=== PATIENT | male | born 1985 | race Caucasian/White ===

== ENCOUNTER 2024-10-10 12:00 | Emergency (ER) | payer OTHER, SELFPAY ==
[2024-10-10] VITALS (10 sets, daily range): BP systolic 113–134; BP diastolic 71–88; PULSE 82–125; RESP 12–23; TEMP 36.3–36.4; O2SAT 97–100
--- NOTE | ~2024-10-10 | XR_ITS ---
EXAMINATION: XR chest 2V 10/10/2024 12:35 INDICATION: Chest pain and shortness of breath PROCEDURE: 2 view chest COMPARISON: 09/19/2016 FINDINGS: The lungs are clear. The cardiomediastinal silhouette is within normal limits. There are no pleural effusions. There is no pneumothorax suspected. IMPRESSION: 1: NO ACUTE CARDIOPULMONARY DISEASE. Reviewed, dictated and finalized at location A.
--- NOTE | ~2024-10-10 | CT_ITS ---
EXAMINATION: CTA chest PE protocol DATE: 10/10/2024 14:40 INDICATION: Chest pain. Shortness of breath. TECHNIQUE: Computed tomography (CT) pulmonary angiogram of the chest was performed with 100 mL Omnipa que-350 intravenous contrast. Additional 3D reconstructions utilizing coronal maximum intensity proje ction (MIP) were performed. Automated exposure control and iterative reconstruction technique were em ployed. The dose-length product was 298.53 mGy-cm. COMPARISON: None FINDINGS: No pulmonary embolism. No pneumonia, pulmonary edema, pleural effusion or pneumothorax. Calcified nod ule at the basilar left lower lobe and calcified subcarinal lymph nodes consistent with old granuloma tous disease. Heart size is normal. No pericardial effusion. Thoracic aorta is normal in caliber with no dissection. No pathologically enlarged thoracic lymphadenopathy. Diffuse hepatic steatosis with f ocal sparing along the gallbladder fossa.. Bones are unremarkable. IMPRESSION: 1. No pulmonary embolism or other acute cardiopulmonary disease. 2. Diffuse hepatic steatosis. Reviewed, dictated and finalized at location A.
--- OUTSIDE RECORDS SUMMARY | 2024-10-10 12:03 | XMS_ITS | Referral Summary ---
Author Organization [facility] Address [address] [place] [id number] Care Team Providers Care Display Trimmer Name Role Phone No, Physician Primary Care Provider [phone] Allergies No known active allergies Medications No known medications Active Problems Problem Noted Date Diagnosed Date Precordial pain 10/22/2016 Social History Tobacco Use Types Packs/Day Years Used Date Smoking Tobacco: Every Day Cigarettes Smokeless Tobacco: Never Alcohol Use Standard Drinks/Week Comments Yes 10 (1 standard drink = 0.6 oz pu re alcohol) Personal Safety Answer Date Recorded Getting School Help Needed Not on file 10/07 Sex and Gender Information Value Date Recorded Sex Assigned at Not on file Legal Sex Male 4:20 PM CDT Gender Identity Not on file Sexual Orientation Not on file Last Filed Vital Signs Vital Sign Reading Time Taken Comments Blood Pressure 163/98 10/05/2022 9:15 PM CDT Pulse 76 10/05/2022 9:15 PM CDT Temperature 36.8 C (98.2 F) 10/05/2022 4:56 PM CDT Respiratory Rate 22 10/05/2022 9:15 PM CDT Oxygen Saturation 95% 10/05/2022 9:15 PM CDT Inhaled Oxygen Concentration - - Weight 87.5 kg (193 lb) 10/05/2022 4:56 PM CDT Height 172.7 cm (5' 8) 10/05/2022 4:56 PM CDT Body Mass Index 29.35 10/05/2022 4:56 PM CDT Plan of Treatment Not on file Insurance [facility] CHOICE PLUS [facility] CHOICE PLUS Care Teams Display Trimmer Relationship Specialty Start Date End Date No, Physician PCP - General 10/05/22
--- OUTSIDE RECORDS SUMMARY | 2024-10-10 12:03 | XMS_ITS | Clinical Summary ---
Author Organization [facility] Address [address] [place] [id number] Care Team Providers Care Lining Machine Operator Name Role Phone No, Physician Primary Care Provider [phone] Allergies No known active allergies Medications No known medications Active Problems Problem Noted Date Diagnosed Date Precordial pain 10/22/2016 Family History Medical History Relation Name Comments No Known Problems Father No Known Problems Mother No Known Problems Sister Relation Name Status Comments Father Alive Mother Alive Sister Alive Social History Tobacco Use Types Packs/Day Years [...] on file Sexual Orientation Not on file Obstetrics History Last Filed Vital Signs Vital Sign Reading [...] 10/05/2022 4:56 PM CDT Plan of Treatment Health Maintenance Due Date Last Done Comments Depression Screening 1985 Hepatitis C Screening 1985 DTaP/Tdap/Td Vaccine (1 - Tdap) 1996 Varicella Vaccines (1 of 2 - 13+ 2-dose series) 1998 Hepatitis B Screening 2003 Regular Well Visit/Exam 18-64 2003 Pneumococcal vaccine <65 (1 of 2 - PCV) 2004 HPV Vaccines (1 - 3-dose SCDM series) 2012 Influenza Vaccine (#1) 2024 Insurance UHC CHOICE PLUS [facility] CHOICE PLUS Care Teams Lining Machine Operator Relationship Specialty Start Date End Date No, Physician PCP - General 10/05/22
--- NOTE | 2024-10-10 12:06 | ECG_ITS ---
Test Date: 2024-10-10 12:12:10 Measurements Intervals [place] Rate: 119 P: 62 NE: 138 QRS: 55 QRSD: 81 T: 62 QT: 292 QTc: 412 Interpretive Statements SINUS TACHYCARDIA ABNORMAL ECG No previous ECG available for comparison Electronically Signed On 10-10-2024 12:51:48 CDT by Denis Chan D.O.
[2024-10-10] MEDS: ASPIRIN 81 MG CHEWABLE TABLET 324 MG PO (12:13)
--- NOTE | 2024-10-10 12:13 | ED.SOB ---
HPI - SOB/Dyspnea General Chief Complaint: Shortness of Breath/Dyspnea <Julio Medellin APRN - Last Filed: 10/10/24 13:57> Stated Complaint: SOB, dizzy, ears popping in and out <Julio Medellin APRN - Last Filed: 10/10/24 13:57> Time Seen by Provider: 10/10/24 12:13 <Julio Medellin APRN - Last Filed: 10/10/24 13:57> Presents to the ER complaining of dizziness, shortness of breath, palpitations, lightheadedness the last 5 days. Patient says symptoms come and go. Patient says symptoms now lot worse today after he was fishing he became very dizzy especially with position changes and reporting shortness of breath. Patient denies any chest pain, loss of consciousness, vision changes, headaches, abdominal pain, nausea, vomiting, diarrhea, or any other symptoms. Patient has a history of hypertension and is a smoker. Patient denies any other significant past medical history. Focused HPI: GENERAL: Well-appearing, well-nourished, and in no acute distress. HEAD: Normocephalic, atraumatic. CHEST: Clear to auscultation. ?No respiratory distress. Patient Tachypneic. HEART: Tachycardic rate and rhythm.? NEURO: ?Alert and oriented x3. Patient screened in triage and initial orders placed.? ?Additional care and disposition to be based upon?diagnostic testing and treatment. <Julio Medellin APRN - Last Filed: 10/10/24 13:57> History of Present Illness HPI Narrative: Agree with HPI <Kendall Gomez MD - Last Filed: 10/10/24 16:01> Related Data Allergies/Adverse Reactions: Allergies Allergy/AdvReac Type Severity Reaction Status Date / Time No Known Allergies Allergy Unverified 10/10/24 12:44 <Julio Medellin APRN - Last Filed: 10/10/24 13:57> Review of Systems Review of Systems: All systems reviewed & are unremarkable except as noted in HPI and below <Kendall Gomez MD - Last Filed: 10/10/24 16:01> Constitutional: Constitutional: Reports no additional constitutional complaints <Kendall Gomez MD - Last Filed: 10/10/24 16:01> ENT: Reports system reviewed and no additional complaints, except as documented <Kendall Gomez MD - Last Filed: 10/10/24 16:01> Cardiovascular: Cardiovascular: Reports no additional cardiovascular complaints <Kendall Gomez MD - Last Filed: 10/10/24 16:01> Respiratory: Respiratory: Reports no additional respiratory complaints <Kendall Gomez MD - Last Filed: 10/10/24 16:01> Gastrointestinal: Gastrointestinal: Reports no additional gastrointestinal complaints <Kendall Gomez MD - Last Filed: 10/10/24 16:01> Musculoskeletal: Musculoskeletal: Reports no additional musculoskeletal complaints <Kendall Gomez MD - Last Filed: 10/10/24 16:01> [facility] Past Medical History Medical History: Medical History (Updated 10/10/24 @ 15:59 by Kendall Gomez MD) Healthy adult male <Julio Medellin APRN - Last Filed: 10/10/24 13:57> Surgical History Surgical History: Surgical History (Updated 10/10/24 @ 15:57 by Kendall Gomez MD) No pertinent past surgical history <Julio Medellin APRN - Last Filed: 10/10/24 13:57> Exam Narrative: GENERAL: Well-appearing, well-nourished, and in no acute distress. HEAD: Normocephalic, atraumatic. EYES: Right gaze nystagmus. ENT: Mucous membranes moist. TMs normal bilaterally. CHEST: Clear to auscultation. No respiratory distress. HEART: Regular rate and rhythm. Normal peripheral pulses. ABDOMEN: Soft, nontender, nondistended. EXTREMITIES: Normal range of motion. No edema. SKIN: Warm, dry, no rash. NEURO: Alert and oriented x3. PSYCH: Normal mood and affect. <Kendall Gomez MD - Last Filed: 10/10/24 16:01> Course Vital Signs Vital signs: Vital Signs Temperature 97.5 F L 10/10/24 12:03 Pulse Rate 125 H 10/10/24 12:03 Respiratory Rate 23 H 10/10/24 12:03 Blood Pressure 116/88 10/10/24 12:03 Pulse Oximetry 100 10/10/24 12:03 Oxygen Delivery Room Air 10/10/24 12:03 Temperature 97.5 F L 10/10/24 12:03 Pulse Rate 93 10/10/24 15:28 Respiratory Rate 18 10/10/24 15:28 Blood Pressure 125/85 10/10/24 15:28 Pulse Oximetry 99 10/10/24 15:28 Oxygen Delivery Room Air 10/10/24 12:51 <Julio Medellin APRN - Last Filed: 10/10/24 13:57> Vital Signs Temperature 97.5 F L 10/10/24 12:03 Pulse Rate 125 H 10/10/24 12:03 Respiratory Rate 23 H 10/10/24 12:03 Blood Pressure 116/88 10/10/24 12:03 Pulse Oximetry 100 10/10/24 12:03 Oxygen Delivery Room Air 10/10/24 12:03 Temperature 97.5 F L 10/10/24 12:03 Pulse Rate 93 10/10/24 15:28 Respiratory Rate 18 10/10/24 15:28 Blood Pressure 125/85 10/10/24 15:28 Pulse Oximetry 99 10/10/24 15:28 Oxygen Delivery Room Air 10/10/24 12:51 <Kendall Gomez MD - Last Filed: 10/10/24 16:01> MDM - SOB/Dyspnea Lab Data Result diagrams: 10/10/24 12:22 10/10/24 12:22 <Julio Medellin APRN - Last Filed: 10/10/24 13:57> Labs: Lab Results 10/10/24 10/10/24 10/10/24 Range/Units 12:22 12:22 15:18 WBC 10.1 H (4.5-10.0) K/mm3 RBC 5.05 (4.6-6.20) M/mm3 Hgb 16.2 (14.0-18.0) g/dL Hct 46.1 (42.0-52.0) % MCV 91.3 (80-100) fl MCH 32.1 (26-34) pg MCHC 35.1 (32-36) g/dl RDW 11.9 (11.5-14.5) % Plt Count 201 (150-375) k/mm3 MPV 10.8 H (7.4-10.4) fl Immature Gran % (Auto) 0.2 (0-0.5) % Neut % (Auto) 68.9 (45.5-73.1) % Lymph % (Auto) 25.2 (18.3-44.2) % [place] % (Auto) 5.2 (2.6-8.5) % Eos % (Auto) 0.1 (0-4.4) % Baso % (Auto) 0.4 (0.2-1.2) % Lymph # (Auto) 2.54 (0.9-3.2) K/mm3 [place] # (Auto) 0.5 (0.1-0.6) K/mm3 Eos # (Auto) 0.0 (0-0.3) K/mm3 Baso # (Auto) 0.0 (0.0-0.1) K/mm3 Abs Immat Gran (auto) 0.02 (0.00-0.031) K/mm3 Absolute Neuts (auto) 6.9 H (1.3-6.7) K/mm3 Absolute Nucleated RBC 0.000 (0.0-0.012) K/mm3 Nucleated RBC % 0.0 (0.0-0.2) % PT 12.7 (11.1-14.7) Seconds INR 1.0 APTT 22.2 L (22.3-36.8) Seconds D-Dimer 1.88 H Cancelled (<0.48) ug/mL Sodium 130 L (137-145) mmol/L Potassium 4.0 (3.4-5.0) mmol/L Chloride 104 (98-107) mmol/L Carbon Dioxide 15 L (22-30) mmol/L Anion Gap 11 (4-12) mmol/L BUN 27 H (9-20) mg/dL Creatinine 1.38 H (0.7-1.3) mg/dL Estim Creat Clear Calc 62 ml/min Estimated GFR 57 L (59 - ) Glucose 107 (65-110) mg/dL Calcium 9.6 (8.4-10.2) mg/dL Total Bilirubin 1.5 H (0.2-1.3) mg/dL AST 75 H (17-59) U/L ALT 98 H (6-50) U/L Alkaline Phosphatase 86 (38-126) U/L Troponin I < 0.012 < 0.012 (0.000-0.034) ng/mL Total Protein 7.0 (6.3-8.2) g/dL Albumin 4.3 (3.5-5.1) g/dL Lipase 113 (23-300) U/L <Julio Snider Juan Cjoann, WOOD DIE MAKER - Last Filed: 10/10/24 13:57> Lab Results 10/10/24 10/10/24 10/10/24 Range/Units 12:22 12:22 15:18 WBC 10.1 H (4.5-10.0) K/mm3 RBC 5.05 (4.6-6.20) M/mm3 Hgb 16.2 (14.0-18.0) g/dL Hct 46.1 (42.0-52.0) % MCV 91.3 (80-100) fl MCH 32.1 (26-34) pg MCHC 35.1 (32-36) g/dl RDW 11.9 (11.5-14.5) % Plt Count 201 (150-375) k/mm3 MPV 10.8 H (7.4-10.4) fl Immature Gran % (Auto) 0.2 (0-0.5) % Neut % (Auto) 68.9 (45.5-73.1) % Lymph % (Auto) 25.2 (18.3-44.2) % [place] % (Auto) 5.2 (2.6-8.5) % Eos % (Auto) 0.1 (0-4.4) % Baso % (Auto) 0.4 (0.2-1.2) % Lymph # (Auto) 2.54 (0.9-3.2) K/mm3 [place] # (Auto) 0.5 (0.1-0.6) K/mm3 Eos # (Auto) 0.0 (0-0.3) K/mm3 Baso # (Auto) 0.0 (0.0-0.1) K/mm3 Abs Immat Gran (auto) 0.02 (0.00-0.031) K/mm3 Absolute Neuts (auto) 6.9 H (1.3-6.7) K/mm3 Absolute Nucleated RBC 0.000 (0.0-0.012) K/mm3 Nucleated RBC % 0.0 (0.0-0.2) % PT 12.7 (11.1-14.7) Seconds INR 1.0 APTT 22.2 L (22.3-36.8) Seconds D-Dimer 1.88 H Cancelled (<0.48) ug/mL Sodium 130 L (137-145) mmol/L Potassium 4.0 (3.4-5.0) mmol/L Chloride 104 (98-107) mmol/L Carbon Dioxide 15 L (22-30) mmol/L Anion Gap 11 (4-12) mmol/L BUN 27 H (9-20) mg/dL Creatinine 1.38 H (0.7-1.3) mg/dL Estim Creat Clear Calc 62 ml/min Estimated GFR 57 L (59 - ) Glucose 107 (65-110) mg/dL Calcium 9.6 (8.4-10.2) mg/dL Total Bilirubin 1.5 H (0.2-1.3) mg/dL AST 75 H (17-59) U/L ALT 98 H (6-50) U/L Alkaline Phosphatase 86 (38-126) U/L Troponin I < 0.012 < 0.012 (0.000-0.034) ng/mL Total Protein 7.0 (6.3-8.2) g/dL Albumin 4.3 (3.5-5.1) g/dL Lipase 113 (23-300) U/L <Kendall Gomez MD - Last Filed: 10/10/24 16:01> Imaging Data Radiologist's impression: ITS Impressions Chest X-Ray 10/10/24 12:56 IMPRESSION: 1: NO ACUTE CARDIOPULMONARY DISEASE. Chest CTA 10/10/24 14:44 IMPRESSION: 1. No pulmonary embolism or other acute cardiopulmonary disease. 2. Diffuse hepatic steatosis. <Kendall Gomez MD - Last Filed: 10/10/24 16:01> Discharge Plan Discharge Clinical Impression: Vertigo <Julio Medellin APRN - Last Filed: 10/10/24 13:57> Patient Disposition: Home <Julio Medellin APRN - Last Filed: 10/10/24 13:57> Condition: Stable <Julio Medellin APRN - Last Filed: 10/10/24 13:57> Instructions: Vertigo (ED) <Julio Medellin APRN - Last Filed: 10/10/24 13:57> Additional Instructions: Return the ER if you have worsening dizziness, he cannot keep down food water, you develop chest pain with exertion, have additional concerns. Follow-up with your primary care doctor for further treatment evaluation. Make sure you drink plenty of water and stay hydrated. <Julio Medellin APRN - Last Filed: 10/10/24 13:57> Patient Language: Malay <Julio Medellin APRN - Last Filed: 10/10/24 13:57> Prescriptions: New meclizine 25 mg tablet 25 mg PO TID Qty: 20 0RF <Julio Medellin APRN - Last Filed: 10/10/24 13:57> Follow-up/Referrals: PHYSICIAN NOT ON STAFF,NONSTAFF [Non-Staff] - 1 Week <Julio Medellin APRN - Last Filed: 10/10/24 13:57>
[2024-10-10 12:33] LABS: Hematocrit 46.1 % (42.0-52.0); Hemoglobin 16.2 g/dL (14.0-18.0); Immature Granulocyte Percent A 0.2 % (0-0.5); Lymphocytes Absolute Auto 2.54 K/mm3 (0.9-3.2); Mean Corpuscular HGB Conc 35.1 g/dl (32-36); Mean Corpuscular Hemoglobin 32.1 pg (26-34); Mean Corpuscular Volume 91.3 fl (80-100); Nucleated Red Blood Cells Absolute Auto 0.000 K/mm3 (0.0-0.012); Nucleated Red Blood Cells Perc 0.0 % (0.0-0.2); Platelet Count Result 201 k/mm3 (150-375); Red Blood Count 5.05 M/mm3 (4.6-6.20); White Blood Count 10.1 K/mm3 (4.5-10.0)
[2024-10-10 12:52] LABS: INR 1.0; Partial Thromboplastin Time 22.2 Seconds (22.3-36.8); Prothrombin Time 12.7 Seconds (11.1-14.7)
[2024-10-10 13:00] LABS: Alanine Aminotransferase 98 U/L (6-50); Anion Gap 11 mmol/L (4-12); Blood Urea Nitrogen 27 mg/dL (9-20); Calcium 9.6 mg/dL (8.4-10.2); Carbon Dioxide 15 mmol/L (22-30); Chloride 104 mmol/L (98-107); Estimated CRCL calculation 62 ml/min; Estimated Glomerular Filt Rate 57; Lipase 113 U/L (23-300); Sodium 130 mmol/L (137-145)
[2024-10-10 13:19] LABS: Albumin Level 4.3 g/dL (3.5-5.1); Alkaline Phosphatase 86 U/L (38-126); Aspartate Amino Transferase 75 U/L (17-59); Bilirubin,Total 1.5 mg/dL (0.2-1.3); Glucose 107 mg/dL (65-110); Potassium 4.0 mmol/L (3.4-5.0); Total Protein 7.0 g/dL (6.3-8.2)
[2024-10-10 13:30] LABS: Troponin I < 0.012 ng/mL (0.000-0.034)
--- OUTSIDE RECORDS SUMMARY | 2024-10-10 14:09 | XMS_ITS | Clinical Summary ---
Author Organization [facility] Address [address] [place] [id number] Care Team Providers Care Jewelry Mechanic Name Role Phone No, Physician Primary Care Provider [phone] Allergies No known active allergies Medications No [...] Vaccine (#1) 2024 Insurance [employer] CHOICE PLUS [facility] CHOICE PLUS Care Teams Jewelry Mechanic Relationship Specialty Start Date End Date No, Physician PCP - General 10/05/22
--- OUTSIDE RECORDS SUMMARY | 2024-10-10 14:09 | XMS_ITS | Referral Summary ---
Author Organization [facility] Address [address] [place] [phone] Care Team Providers Care Sprinkler Helper Name Role Phone No, Physician Primary Care Provider [phone] Allergies No known active allergies Medications No [...] Plan of Treatment Not on file Insurance [facility] CHOICE PLUS [facility] CHOICE PLUS Care Teams Sprinkler Helper Relationship Specialty Start Date End Date No, Physician PCP - General 10/05/22
--- OUTSIDE RECORDS SUMMARY | 2024-10-10 14:09 | XMS_ITS | Clinical Summary ---
Author Organization [facility] Address [address] [place] [address] Phone Care Team Providers Care Diesel Engine Inspector Name Role Phone Provider, Unknown Primary Care Provider Unavaila ble Allergies No known active allergies Medications olmesartan-hydro chlorothiazide (BENICAR HCT) 20-12.5 MG Tablet Take 1 Tablet by mouth daily. 02/07/2024 Active Active Problems No known active problems Social History Tobacco Use Types Packs/Day Years Used Date Smoking Tobacco: Every Day Cigarettes Smokeless Tobacco: Never Tobacco Cessation:Ready to Q uit: Not Asked; Counseling Given: Not Answered Alcohol Use Standard Drinks/Week Comments Yes 0 (1 standard drink = 0.6 oz pur e alcohol) daily Sex and Gender Information Value Date Recorded Sex Assigned at Not on file Legal Sex Male 7:56 AM CDT Gender Identity Not on file Sexual Orientation Not on file Last Filed Vital Signs Vital Sign Reading Time Taken Comments Blood Pressure 140/100 04/08/2024 3:51 PM MARKETING REPORTING ANALYST Pulse 86 04/08/2024 3:51 PM MARKETING REPORTING ANALYST Temperature 37.8 C (100 F) 04/08/2024 3:51 PM MARKETING REPORTING ANALYST Respiratory Rate 20 04/08/2024 3:51 PM MARKETING REPORTING ANALYST Oxygen Saturation 96% 04/08/2024 3:51 PM MARKETING REPORTING ANALYST Inhaled Oxygen Concentration - - Weight 86.6 kg (191 lb) 11/01/2023 7:57 PM CDT Height 172.7 cm (5' 8) 11/01/2023 7:57 PM CDT Body Mass Index 29.04 11/01/2023 7:57 PM CDT Plan of Treatment Health Maintenance Due Date Last Done Comments Hepatitis C Virus (HCV) Screening 1985 TdaP Immunization 1985 Human Papillomavirus (HPV) Immunization (1 - Male 3-dose series) 2000 Hepatitis B Immunization (1 of 3 - 19+ 3-dose series) 2004 Pneumococcal Immunization Co mbined (1 of 2 - PCV) 2004 SARS-COV-2 Immunization (1 - season) 2023 Influenza Immunization (#1) 2024 Respiratory Syncytial Virus (RSV) Immunization (Adult) (1 - 1-dose 75+ series) 2060 Meningococcal Immunization (ACWY) Aged Out No longer eligible based on patient's age to complete this topic Rotavirus Immunization Aged Out No lo nger eligible based on patient's age to [place] [address] [facility] [id number] Care Teams Diesel Engine Inspector Relationship Specialty Start Date End Date Provider, Unknown UNKNOWN PCP - General 07/12/20
[2024-10-10] MEDS: MECLIZINE HCL 25 MG TABLET PO (14:10)
[2024-10-10] MEDS: SODIUM CHLORIDE 0.9% IV 1,000 ML 999 ML IV CONT (14:10)
--- NOTE | 2024-10-10 15:05 | ECG_ITS ---
Test Date: 2024-10-10 15:27:53 Measurements Intervals [place] Rate: 93 P: 52 NE: 144 QRS: 42 QRSD: 93 T: 50 QT: 365 QTc: 456 Interpretive Statements SINUS RHYTHM NORMAL ECG Compared to ECG 10/10/2024 12:12:10 Sinus tachycardia no longer present Electronically Signed On 10-10-2024 15:35:07 CDT by Denis Chan D.O.
--- NOTE | 2024-10-10 15:10 | PC.NURSE ---
Report given to RANJANA Concepcion
[2024-10-10 15:55] LABS: Troponin I < 0.012 ng/mL (0.000-0.034)
== END 2024-10-10 16:21 | disposition home or self-care (01) ==
PROVIDERS: Family Medicine; Emergency Provider Emergency Medicine; PCP Internal Medicine
DX: R42 Dizziness and giddiness (principal); K76.0 Fatty (change of) liver, not elsewhere classified; I10 Essential (primary) hypertension; F17.210 Nicotine dependence, cigarettes, uncomplicated
CPT/HCPCS: 36415; 71046; 71275; 80053; 83690; 84484; 85025; 85380; 85610; 85730; 93005; 96360; 99284; A9270; J7030; Q9967

== ENCOUNTER 2024-10-13 09:22 | Outpatient (CLI) | payer OTHER, SELFPAY ==
--- NOTE | 2024-10-13 | ECHO_ITS ---
Patient Info Name: Ho Jeter Age: 39 years : 1985 Gender: Male Ht: 68 in Wt: 198 lbs BSA: 2.10 m2 HR: 73 bpm BP: 146 / 108 mmHg Technical Quality: Good Exam Date: 10/13/2024 9:50 AM Patient Status: O Admit Date: 10/13/2024 Exam Type: CA echo doppler color flow Complete two-dimensional, color flow and Doppler transthoracic echocardiogram is performed. Maintenance Supervisor: Stefany Chahal Attending Provider: Geovanna Martins Summary 1. Complete two-dimensional, color flow and Doppler transthoracic echocardiogram is performed. 2. There is normal biventricular size and systolic function. 3. There is normal diastolic function. Left Ventricle The left ventricle is normal in size and systolic function. The left ventricular ejection fraction is visually estimated to be 50-55%. There is normal diastolic function. Right Ventricle The right ventricle is normal in size and systolic function. Left Atria The left atrium is normal size. Right Atria The right atrium is normal size. Atrial Septum There is no color Doppler evidence of shunts. Aortic Valve The aortic valve is not well visualized. There is no hemodynamically significant aortic stenosis by Doppler. Pulmonic Valve The pulmonic valve is not well visualized. There were no color Doppler evidence of pulmonic valve regurgitation. Mitral Valve The mitral valve is normal. Tricuspid Valve The tricuspid valve is normal. Pericardium/Pleural Pericardium is normal in appearance with no evidence for significant pericardial effusion. Inferior Vena Cava Normal inferior vena cava with >50% collapse upon inspiration consistent with normal right atrial pressure, 3 mmHg. Aorta The aortic root at the level of the sinus of Valsalva measures 3.1 cm in diameter. Left Ventricular Outflow Tract Name Value Normal LVOT 2D LVOT Diameter 2.0 cm LVOT Doppler LVOT Peak Velocity 105 cm/s LVOT Peak Gradient 4 mmHg LVOT Mean Gradient 2 mmHg LVOT VTI 22 cm LVOT Stroke Volume 71 ml LVOT CO 5.2 l/min LVOT CI 2.5 l/min/m2 Pulmonic Valve Name Value Normal RVOT Doppler RVOT Peak Velocity 78 cm/s RVOT Peak Gradient 2 mmHg PV Doppler PV Peak Velocity 117 cm/s PV Peak Gradient 5 mmHg Mitral Valve Name Value Normal MV Diastolic Function MV E Peak Velocity 84 cm/s MV A Peak Velocity 70 cm/s MV E/A 1.2 MV Decel Time (PW) 187 ms MV Annular TDI MV E/e' (Septal) 8.3 MV E/e' (Lateral) 6.4 MV E/e' (Average) 7.3 Tricuspid Valve Name Value Normal Estimated PAP/RSVP RA Pressure 3 mmHg <=5 Aortic Valve Name Value Normal AV Doppler AV Peak Velocity 126 cm/s AV Peak Gradient 6 mmHg AV Area (Cont Eq Denis) 2.7 cm2 AV DI (Denis) 0.83 AV Regurgitation 2D LVOT Area 3.3 cm2 Ventricles Name Value Normal LV Dimensions 2D/MM IVS Diastolic Thickness (2D) 0.8 cm 0.6-1.0 LVID Diastole (2D) 5.0 cm 4.2-5.8 LVIW Diastolic Thickness (2D) 1.3 cm 0.6-1.0 LVID Systole (2D) 3.7 cm 2.5-4.0 LVOT Diameter 2.0 cm LV Mass (2D Cubed) 199.84 g 88.00-224.00 LV Mass Index (2D Cubed) 95 g/m2 49-115 Relative Wall Thickness (2D) 0.54 <=0.42 LV Fractional Shortening/Ejection Fraction 2D/MM LV Fractional Shortening (2D) 26 % 25-43 LV EF (2D Teichholz) 51 % LV Diastolic Volume (4C MOD) 132 ml LV EF (4C MOD) 52 % LV Diastolic Volume (2C MOD) 118 ml LV EF (2C MOD) 61 % LV Diastolic Volume (BP MOD) 126 ml 62-150 LV Diastolic Volume Index (BP MOD) 60 ml/m2 34-74 LV Systolic Volume (BP MOD) 54 ml 21-61 LV Systolic Volume Index (BP MOD) 26 ml/m2 11-31 LV EF (BP MOD) 57 % 52-72 LV Diastolic Length (4C) 9.2 cm LV Systolic Length (4C) 8.0 cm LV Stroke Volume (4C MOD) 69 ml Atria Name Value Normal LA Dimensions LA Volume (4C A-L) 31 ml LA Volume (BP A-L) 32 ml RA Dimensions RA Systolic Major [place] Length (4C) 4.6 cm 2.1-2.7 RA Area (4C) 11.0 cm2 <=18.0 Report Signatures
--- OUTSIDE RECORDS SUMMARY | 2024-10-13 09:29 | XMS_ITS | Clinical Summary ---
Author Organization [facility] Address [address] [place] [id number] Care Team Providers Care Poultry Farm Supervisor Name Role Phone No, Physician Primary Care Provider [phone] Allergies No known active allergies Medications No [...] Vaccine (#1) 2024 Insurance [employer] CHOICE PLUS [facility] CHOICE PLUS Care Teams Poultry Farm Supervisor Relationship Specialty Start Date End Date No, Physician PCP - General 10/05/22
--- OUTSIDE RECORDS SUMMARY | 2024-10-13 09:29 | XMS_ITS | Clinical Summary ---
Author Organization [facility] Address [address] [place] [place] [address] Phone Care Team Providers Care Snowmobile Mechanic Name Role Phone Provider, Unknown Primary Care [...] Comments Blood Pressure 140/100 04/08/2024 3:51 PM LICENSED MASSAGE THERAPIST Pulse 86 04/08/2024 3:51 PM LICENSED MASSAGE THERAPIST Temperature 37.8 C (100 F) 04/08/2024 3:51 PM LICENSED MASSAGE THERAPIST Respiratory Rate 20 04/08/2024 3:51 PM LICENSED MASSAGE THERAPIST Oxygen Saturation 96% 04/08/2024 3:51 PM LICENSED MASSAGE THERAPIST Inhaled Oxygen Concentration - - Weight 86.6 kg (191 lb) 11/01/2023 7:57 PM CDT Height 172.7 cm (5' 8) 11/01/2023 7:57 PM CDT Body Mass Index 29.04 11/01/2023 7:57 PM CDT Plan of Treatment Upcoming Encounters Date Type Department Care Team (Late st Contact Info) Description 10/21/2024 10:00 AM CDT Office Visit [facility] - Family Medicine - [place] [address] [place] [phone] Mychal Blount, FUEL MANAGEMENT HANDLER, BOOK TRIMMER [address] [address] Health Maintenance Due Date Last Done Comments Hepatitis C Virus (HCV) Screening 1985 TdaP Immunization 1985 Hepatitis B Immunization (1 of 3 - 19+ 3-dose series) 2004 Pneumococcal Immunization Co mbined (1 of 2 - PCV) 2004 Human Papillomavirus (HPV) Immunization (1 - 3-dose SCDM series) 2012 SARS-COV-2 Immunization ( - season) 2023 Influenza Immunization (#1) 2024 Respiratory Syncytial Virus (RSV) Immunization (Adult) (1 - 1-dose 75+ series) 2060 Meningococcal Immunization (ACWY) Aged Out No longer eligible based on patient's age to complete this topic Rotavirus Immunization Aged Out No lo nger eligible based on patient's age to complete [place] [address] [facility] Care Teams Snowmobile Mechanic Relationship Specialty Start Date End Date Provider, Unknown UNKNOWN PCP - General 07/12/20
== END 2024-10-13 09:23 | disposition home or self-care (01) ==
PROVIDERS: PCP Internal Medicine
DX: R00.2 Palpitations (principal)
CPT/HCPCS: 93306

== ENCOUNTER 2024-10-14 09:56 | Outpatient (CLI) | payer OTHER, SELFPAY ==
--- OUTSIDE RECORDS SUMMARY | 2024-10-14 10:09 | XMS_ITS | Clinical Summary ---
Author Organization [facility] Address [address] [place] [phone] Care Team Providers Care Thermometer Maker Name Role Phone No, Physician Primary Care Provider [phone] Allergies No known active allergies Medications No [...] Vaccine (#1) 2024 Insurance [employer] CHOICE PLUS [facility] CHOICE PLUS Care Teams Thermometer Maker Relationship Specialty Start Date End Date No, Physician PCP - General 10/05/22
--- OUTSIDE RECORDS SUMMARY | 2024-10-14 10:09 | XMS_ITS | Clinical Summary ---
Author Organization [facility] Address [address] [place] [place] [address] Phone Care Team Providers Care Educational Fundraising Director Name Role Phone Provider, Unknown Primary Care [...] Comments Blood Pressure 140/100 04/08/2024 3:51 PM GENERATING STATION MECHANIC Pulse 86 04/08/2024 3:51 PM GENERATING STATION MECHANIC Temperature 37.8 C (100 F) 04/08/2024 3:51 PM GENERATING STATION MECHANIC Respiratory Rate 20 04/08/2024 3:51 PM GENERATING STATION MECHANIC Oxygen Saturation 96% 04/08/2024 3:51 PM GENERATING STATION MECHANIC Inhaled Oxygen Concentration - - Weight 86.6 kg (191 lb) 11/01/2023 7:57 PM CDT Height 172.7 cm (5' 8) 11/01/2023 7:57 PM CDT Body Mass Index 29.04 11/01/2023 7:57 PM CDT Plan of Treatment Upcoming Encounters Date Type Department Care Team (Late st Contact Info) Description 10/21/2024 10:00 AM CDT Office Visit [facility] - Family Medicine - [place] [address] [place] [phone] Mychal Blount, LEATHER COLORER, IRON PELLET TESTER [address] [address] Health Maintenance Due Date Last Done Comments [...] age to complete [place] [address] [facility] Care Teams Educational Fundraising Director Relationship Specialty Start Date End Date Provider, Unknown UNKNOWN PCP - General 07/12/20
--- NOTE | 2024-10-14 11:58 | WPDPFTINT ---
PFT Procedure Performed PFT Procedure Performed Plethysmography (Lung Vol) Diffusing Cap (DLCO) Flow Vol Loop Spirometry w/o Bronchodil PFT Interpretation This is a pulmonary function test with spirometry, plethysmography and diffusing capacity. The test was performed and results interpreted in accordance with the 2019 and 2005 ATS/ERS Task Force guidelines respectively using the Global Lung Function Initiative-2012 reference equations. Patient demonstrated good effort and cooperation. Reproducibility criteria were met. The quality of the spirometry maneuver was Grade A. Findings: Spirometry: The contour the inspiratory and expiratory flow tracing are normal. The FVC is 5.33 L, 108% predicted. The FEV1 is 3.79, 95% predicted. The FEV1: FVC ratio is 71%. Plethysmography: The total lung capacity is 7.69 L, 117% predicted. The functional residual capacity is 4.19 L, 130% predicted. The residual volume is 2.35 L, 138% predicted. Diffusing capacity: The diffusing capacity unadjusted for hemoglobin and carboxyhemoglobin is 21.3, 66% predicted. The diffusing capacity adjusted for alveolar volume is 3.25, 65% predicted. Impression: The spirometry is normal without evidence of an obstructive abnormality. The lung volumes are normal. The diffusing capacity unadjusted for hemoglobin and carboxyhemoglobin is mildly decreased and remains mildly decreased when adjusted for alveolar volume. There are no prior studies for comparison
== END 2024-10-14 09:57 | disposition home or self-care (01) ==
LOC: ANHIMG 10:06
PROVIDERS: PCP Internal Medicine
DX: R06.02 Shortness of breath (principal)
CPT/HCPCS: 94375; 94726; 94729

== ENCOUNTER 2024-11-15 07:50 | Outpatient (CLI) | payer OTHER, SELFPAY ==
--- OUTSIDE RECORDS SUMMARY | 2024-11-15 08:12 | XMS_ITS | Clinical Summary ---
Author Organization [facility] Address [address] [place] [address] Phone Care Team Providers Care Anatomical Embalmer Name Role Phone Provider, Unknown Primary Care Provider Unavaila ble Allergies No known active allergies Medications olmesartan-hydro chlorothiazide (BENICAR HCT) 20-12.5 MG Tablet Take 1 Tablet by mouth daily. 02/07/2024 Active Active Problems No known active problems Encounters Date Type Department Care Team Description 10/18/2024 Telephone [facility] - Family Medicine [facility] [address] [place] [address] Mychal Blount APRN, JAZZY from Last 3 Months Family History Medical History Relation Name Comments No Known Problems Brother No Known Problems Father Chronic Lung Disease Maternal Grandfather Brain Cancer Maternal Grandmother No Known Problems Mother No Known Problems Paternal Grandfather No Known Problems Paternal Grandmother No Known Problems Sister Relation Name Status Comments Brother Alive Father Alive Maternal Grandfather Maternal Grandmother Mother Alive Paternal Grandfather Paternal Grandmother Sister Alive Social History Tobacco Use Types Packs/Day Years Used Date Smoking Tobacco: Every Day Cigarettes Smokeless Tobacco: Never Tobacco Cessation:Ready to Q uit: Not Asked; Counseling Given: Not Answered Alcohol Use Standard Drinks/Week Comments Yes 0 (1 standard drink = 0.6 oz pur e alcohol) on weekend AUDIT-C Answer Date Recorded Q1: How often do you have a drink containing alc ohol? 2-3 times a week 10/18/2024 Q2: How many drinks containi ng alcohol do you have on a typical day when you are drinking? 5 or 6 10/18/2024 Q3: How often do you have si x or more drinks on one occasion? Less than monthly 10/18/2024 Sexually Active Control Partners Comments Yes Sex and Gender Information Value Date Recorded Sex Assigned at Not on file Legal Sex Male 7:56 AM CDT Gender Identity Not on file Sexual Orientation Not on file Last Filed Vital Signs Vital Sign Reading Time Taken Comments Blood Pressure 140/100 04/08/2024 3:51 PM PRECISION INSTRUMENT AND TOOL MAKER Pulse 86 04/08/2024 3:51 PM PRECISION INSTRUMENT AND TOOL MAKER Temperature 37.8 C (100 F) 04/08/2024 3:51 PM PRECISION INSTRUMENT AND TOOL MAKER Respiratory Rate 20 04/08/2024 3:51 PM PRECISION INSTRUMENT AND TOOL MAKER Oxygen Saturation 96% 04/08/2024 3:51 PM PRECISION INSTRUMENT AND TOOL MAKER Inhaled Oxygen Concentration - - Weight 86.6 [...] Immunization (1 - 3-dose SCDM series) 2012 Influenza Immunization (#1) 2024 SARS-COV-2 Immunization ( - season) 2024 Respiratory Syncytial Virus (RSV) Immunization (Adult) (1 - 1-dose 75+ series) 2060 Meningococcal Immunization (ACWY) Aged Out No longer eligible based on patient's age to complete this topic Rotavirus Immunization Aged Out No lo nger eligible based on patient's age to [place] [address] [facility] Care Teams Anatomical Embalmer Relationship Specialty Start Date End Date Provider, Unknown UNKNOWN PCP - General 07/12/20
--- OUTSIDE RECORDS SUMMARY | 2024-11-15 08:12 | XMS_ITS | Clinical Summary ---
Author Organization [facility] Address [address] [place] [phone] Care Team Providers Care Chain Puller Name Role Phone No, Physician Primary Care Provider [phone] Allergies No known active allergies Medications No [...] series) 2012 Influenza Vaccine (#1) 2024 Insurance [facility] CHOICE PLUS [facility] CHOICE PLUS Care Teams Chain Puller Relationship Specialty Start Date End Date No, Physician PCP - General 10/05/22
--- NOTE | 2024-11-25 13:48 | WPDMETH ---
Methacholine Procedure Perform Procedure Performed Methacholine Challenge Methacholine Challenge Methacholine Challenge: DOS: 11/15/2024 REQUESTING: Donn Rajan MD REASON FOR TESTING: dyspnea on exertion, chronic cough METHACHOLINE CHALLENGE This test was conducted per ATS guidelines. A previous PFT on 10/14/2024 showed a normal FEV1 3.79 L, 95% predicted. The patient was exposed to sequentially increasing doses of methacholine in the usual manner. Level 1 - saline Level 2 - 1.81 mcg Level 3 - 7.26 mcg Level 4 - 29 mcg Level 5 - 116 mcg Level 6 - 464 mcg The test was stopped after the final dose of methacholine without a drop of 20% in the FEV1 or FVC. The largest drop in the FEV1 was after the final dose, 16%. A decrease of 20% in the FEV1 is a positive result, and the testing is terminated. Flows returned to normal after bronchodilator was administered. The WZR40-92% was 70% at baseline, dropped by 28% on the final dose of methacholine. This metric is not officially used for diagnosis of asthma. Decrease in the QYT09-60% may be seen during a methacholine challenge. It is seen as a more sensitive, but less specific, indicator of bronchial hyperresponsiveness in the small airways, especially in patients with normal FEV1 values. IMPRESSION: This is a negative methacholine challenge. The best use for a methacholine challenge is to rule out asthma. Clinical correlation is advised. Daniela Villegas MD
== END 2024-11-15 07:51 | disposition home or self-care (01) ==
PROVIDERS: PCP Internal Medicine; Visit Provider Internal Medicine Pulmonary Disease
DX: R06.09 Other forms of dyspnea (principal); R05.3 Chronic cough; D89.9 Disorder involving the immune mechanism, unspecified; Z91.09 Other allergy status, other than to drugs and biological substances
CPT/HCPCS: 94070

== ENCOUNTER 2025-01-10 08:50 | Outpatient (CLI) | payer OTHER, SELFPAY ==
--- NOTE | 2025-01-10 | EST_ITS ---
Patient Info Name: Ho Jeter Age: 39 years : 1985 Gender: Male Ht: 68 in Wt: 192 lbs BSA: 2.07 m2 HR: 73 bpm BP: 143 / 109 mmHg Exam Date: 01/10/2025 8:58 AM Patient Status: O Admit Date: 01/10/2025 Exam Type: CA stress test treadmill A treadmill exercise stress test was performed. Staff Attending Provider: Geovanna Martins Exercise Technologist: Lorraine Turpin Exercise Physician: Denis Chan DO Summary 1. 1. Negative Carlton exercise stress test for ischemic ST changes by ECG criteria. 2. 2. Reduced functional capacity, achieving 7 METs of workload. 3. 3. Baseline hypertension. 4. 4. Rapid HR response to exercise. 5. 5. Appropriate HR recovery at 1 minute post exercise. 6. 6. No imaging with stress testing. 7. 7. Patient informed of the above results. Protocol: [place] Stress ECG Details Stage: REST Duration (min): 0 min : 50 sec Speed (mph): 0.0 Grade (%): 0 HR (bpm): 75 SBP (mmHg): 143 DBP (mmHg): 109 METS: --- Stage: REST Duration (min): 5 min : 39 sec Speed (mph): 0.0 Grade (%): 0 HR (bpm): 90 SBP (mmHg): 143 DBP (mmHg): 109 METS: --- Stage: STAGE 1 Duration (min): 1 min : 0 sec Speed (mph): 1.7 Grade (%): 10 HR (bpm): 125 SBP (mmHg): 143 DBP (mmHg): 109 METS: --- Stage: STAGE 1 Duration (min): 2 min : 0 sec Speed (mph): 1.7 Grade (%): 10 HR (bpm): 150 SBP (mmHg): 143 DBP (mmHg): 109 METS: --- Stage: STAGE 1 Duration (min): 3 min : 0 sec Speed (mph): 1.7 Grade (%): 10 HR (bpm): 158 SBP (mmHg): 181 DBP (mmHg): 99 METS: --- Stage: STAGE 2 Duration (min): 1 min : 0 sec Speed (mph): 2.5 Grade (%): 12 HR (bpm): 174 SBP (mmHg): 181 DBP (mmHg): 99 METS: --- Stage: STAGE 2 Duration (min): 1 min : 30 sec Speed (mph): 2.5 Grade (%): 12 HR (bpm): 176 SBP (mmHg): 181 DBP (mmHg): 99 METS: --- Stage: RECOVERY Duration (min): 0 min : 29 sec Speed (mph): 0.0 Grade (%): 0 HR (bpm): 161 SBP (mmHg): 173 DBP (mmHg): 92 METS: --- Stage: RECOVERY Duration (min): 1 min : 29 sec Speed (mph): 0.0 Grade (%): 0 HR (bpm): 133 SBP (mmHg): 173 DBP (mmHg): 92 METS: --- Stage: RECOVERY Duration (min): 2 min : 29 sec Speed (mph): 0.0 Grade (%): 0 HR (bpm): 123 SBP (mmHg): 173 DBP (mmHg): 92 METS: --- Stage: RECOVERY Duration (min): 3 min : 29 sec Speed (mph): 0.0 Grade (%): 0 HR (bpm): 114 SBP (mmHg): 198 DBP (mmHg): 102 METS: --- Stage: RECOVERY Duration (min): 4 min : 29 sec Speed (mph): 0.0 Grade (%): 0 HR (bpm): 110 SBP (mmHg): 160 DBP (mmHg): 105 METS: --- Stage: RECOVERY Duration (min): 5 min : 29 sec Speed (mph): 0.0 Grade (%): 0 HR (bpm): 107 SBP (mmHg): 160 DBP (mmHg): 105 METS: --- Stage: RECOVERY Duration (min): 6 min : 29 sec Speed (mph): 0.0 Grade (%): 0 HR (bpm): 106 SBP (mmHg): 152 DBP (mmHg): 106 METS: --- Stage: RECOVERY Duration (min): 7 min : 27 sec Speed (mph): 0.0 Grade (%): 0 HR (bpm): 98 SBP (mmHg): 152 DBP (mmHg): 106 METS: --- Rest HR: 90 bpm Peak HR: 176 bpm Rest Sys BP: 143 mmHg Peak Sys BP: 198 mmHg Max Pred HR: 181 bpm % Max Pred HR: 97 % Target HR: 154 bpm Max RPP: 34,848 bpm*mmHg Tompkins Score: -4 Termination Reason: Reached target heart rate or workload Cardiac Symptoms: Shortness of breath Max ST Seg Deviation: 1.70 mm Total Time: 4 min : 30 sec Rest Ace BP: 109 mmHg Peak Ace BP: 102 mmHg Angina Score: None Total METS: 7.1 Resting ECG Sinus rhythm. Stress ECG No ST changes. Arrhythmias None. Report Signatures
--- OUTSIDE RECORDS SUMMARY | 2025-01-10 09:33 | XMS_ITS | Clinical Summary ---
Author Organization [facility] Address [address] [place] [phone] Care Team Providers Care Compliance Specialist Name Role Phone No, Physician Primary Care Provider [phone] Allergies No known active allergies Medications No [...] series) 2012 Influenza Vaccine (#1) 2024 Insurance [facility] CHOICE PLUS [facility] CHOICE PLUS Care Teams Compliance Specialist Relationship Specialty Start Date End Date No, Physician PCP - General 10/05/22
--- OUTSIDE RECORDS SUMMARY | 2025-01-10 09:33 | XMS_ITS | Clinical Summary ---
Author Organization [facility] Address [address] [place] [address] Phone Care Team Providers Care Welder/Installer Name Role Phone Provider, Unknown Primary Care Provider Unavaila ble Allergies No known active allergies Medications olmesartan-hydro chlorothiazide (BENICAR HCT) 20-12.5 MG Tablet Take 1 Tablet by mouth daily. 02/07/2024 Active Active Problems No known active problems Encounters Date Type Department Care Team Description 10/18/2024 Telephone [facility] - [facility] [address] [place] [address] Mychal Blount APRN, JAZZY from [...] Comments Blood Pressure 140/100 04/08/2024 3:51 PM HOSPITAL UNIT CLERK Pulse 86 04/08/2024 3:51 PM HOSPITAL UNIT CLERK Temperature 37.8 C (100 F) 04/08/2024 3:51 PM HOSPITAL UNIT CLERK Respiratory Rate 20 04/08/2024 3:51 PM HOSPITAL UNIT CLERK Oxygen Saturation 96% 04/08/2024 3:51 PM HOSPITAL UNIT CLERK Inhaled Oxygen Concentration - - Weight 86.6 [...] to [place] [address] [facility] Care Teams Welder/Installer Relationship Specialty Start Date End Date Provider, Unknown UNKNOWN PCP - General 07/12/20
== END 2025-01-10 08:51 | disposition home or self-care (01) ==
PROVIDERS: PCP Internal Medicine
DX: R00.2 Palpitations (principal)
CPT/HCPCS: 93017